=== PATIENT | male | born 1955 | race Caucasian/White ===

== ENCOUNTER 2023-03-20 21:43 | Outpatient (CLI) | payer MEDICARE | END 2023-03-20 21:44 | disposition critical access hospital (66) | LOC: EMS 21:43 | DX: R55 Syncope and collapse (principal); F10.90 Alcohol use, unspecified, uncomplicated | CPT/HCPCS: A0425; A0429 ==

== ENCOUNTER 2023-03-20 22:08 | Emergency (ER) | payer MEDICARE ==
[2023-03-20] MEDS ORDERED: SODIUM CHLORIDE 0.9% 1,000 ML IV STA ×2 (22:40→23:35)
[2023-03-20 22:45] LABS: BASOPHILS # (AUTO) 0.1 10^3/uL (0.0-0.1); BASOPHILS % (AUTO) 0.7 %; EOSINOPHILS # (AUTO) 0.2 10^3/uL (0.0-0.7); HCT - HEMATOCRIT 39.7 % (42.0-52.0); HGB - HEMOGLOBIN 12.9 g/dL (14.0-18.0); LYMPHOCYTES # (AUTO) 2.1 10^3/uL (1.5-3.5); LYMPHOCYTES % (AUTO) 25.8 %; MEAN CORPUSCULAR HEMOGLOBIN 31.2 pg (27.0-31.0); MEAN CORPUSCULAR HGB CONC 32.5 g/dL (32.0-36.0); MEAN CORPUSCULAR VOLUME 95.9 fL (80.0-94.0); MEAN PLATELET VOLUME 9.1 fL (7.4-11.4); MONOCYTES # (AUTO) 0.7 10^3/uL (0.0-1.0); MONOCYTES % (AUTO) 9.2 %; NEUTROPHILS % (AUTO) 62.1 %; PLT - PLATELET COUNT 205 10^3/uL (130-450); RED BLOOD COUNT 4.14 10^6/uL (4.70-6.10); RED CELL DISTRIBUTION WIDTH 13.5 % (12.0-15.0); WHITE BLOOD COUNT 8.1 x10^3/uL (4.8-10.8)
--- NOTE | 2023-03-20 22:56 | XRAY Report ---
PROCEDURE: Chest 1 View X-Ray INDICATIONS: syncope TECHNIQUE: One view of the chest was acquired. COMPARISON: None. FINDINGS: Surgical changes and devices: None. Lungs and pleura: No pleural effusions or pneumothorax. Lungs are clear. Mediastinum: Mediastinal contours appear normal. Heart size is borderline. Bones and chest wall: No suspicious bony lesions. Overlying soft tissues appear unremarkable. Old healed right-sided rib fractures are noted. IMPRESSION: Borderline cardiomegaly. No acute cardiopulmonary abnormality is seen. Reviewed by: Tae Pinto MD on 03/20/2023 10:55 PM [facility] Approved by: Tae Pinto MD on 03/20/2023 10:55 PM [facility] Station ID: [id number]
[2023-03-20 23:02] LABS: ALBUMIN/GLOBULIN RATIO 2.1 (1.0-2.2); BILIRUBIN,TOTAL 0.3 mg/dL (0.2-1.0); CALCIUM 8.7 mg/dL (8.5-10.3); CREATININE 1.3 mg/dL (0.6-1.3); POTASSIUM 3.6 mmol/L (3.5-4.5); TOTAL PROTEIN 5.9 g/dL (6.4-8.9)
[2023-03-20 23:04] LABS: TROPONIN I HIGH SENSITIVITY 3.8 ng/L (2.3-19.7)
--- NOTE | 2023-03-21 00:11 | ED Physician Documentation ---
PD HPI SYNCOPE - Stated complaint Stated Complaint: SYNCOPE - Chief complaint Chief Complaint: Neuro - History obtained from History obtained from: Patient, Family (Step son) - History of Present Illness Witnessed: Witnessed - Additional information Additional information: Patient is a 67-year-old male with a history of a prior stroke presenting for evaluation of a syncopal episode this evening. Patient had been in a tavern throughout the day drinking. He reports drinking approximately 8 beers and 2 shots of [place]. This evening he had dinner and it was sitting down in a chair. Per the stepson pt went to get up and then stated he needed to sit back down and then had a 1-2 minute syncopal episode. There was no head injury or fall. No witnessed seizure activity. Patient denies headache, chest pain, shortness of air or abdominal symptoms. Hesitated this has happened in the past when he has had alcohol throughout the day. Does not take a blood thinner. Review of Systems Constitutional: denies: Fever Cardiac: denies: Chest pain / pressure Respiratory: denies: Dyspnea GI: denies: Abdominal Pain, Vomiting Neurologic: reports: Syncope. denies: Head injury PD PAST MEDICAL HISTORY - Past Medical History Cardiovascular: High cholesterol Psych: Anxiety - Past Surgical History Past Surgical History: No - Present Medications Home Medications: Ambulatory Orders Medication Instructions Recorded Confirmed Aspirin [Aspirin EC] 325 mg PO DAILY 03/20/23 03/20/23 Atorvastatin Calcium 40 mg PO DAILY 03/20/23 03/20/23 Fluoxetine HCl [Prozac] 40 mg PO DAILY 03/20/23 03/20/23 Levothyroxine [Synthroid] 100 mcg PO QDAC 03/20/23 03/20/23 - Allergies Allergies/Adverse Reactions: Allergies Allergy/AdvReac Type Severity Reaction Status Date / Time No Known Drug Allergies Allergy Verified 03/20/23 22:24 - Social History Does the pt smoke?: No Smoking Status: Never smoker Does the pt drink ETOH?: Yes ETOH Use: Beer Substance Use and Type: Marijuana PD ED PE NORMAL - General General: Alert and oriented X 3, No acute distress, Well developed/nourished - HEENT HEENT: Atraumatic, PERRL, EOMI, Moist mucous membranes, Pharynx benign - Neck Neck: Supple, no meningeal sign - Cardiac Cardiac: RRR, Strong equal pulses - Respiratory Respiratory: No respiratory distress, Clear bilaterally - Abdomen Abdomen: Soft, Non tender, Non distended - Derm Derm: Warm and dry - Extremities Extremities: No deformity - Neuro Neuro: Alert and oriented X 3, commanding officer motorized squad 2-12 intact, No motor deficit, No sensory deficit, Normal speech Eye Opening: Spontaneous Motor: Obeys Commands Results - Vitals Vitals: Vital Signs - 24 hr 03/20/23 03/20/23 03/20/23 22:10 23:00 23:03 Temperature 36.5 C Heart Rate 70 68 Heart Rate [ Sitting] Heart Rate [ Standing] Heart Rate [ Supine] Respiratory 16 18 Rate Blood Pressure 121/63 89/69 L 117/64 Blood Pressure [Sitting] Blood Pressure [Standing] Blood Pressure [Supine] O2 Saturation 98 98 03/20/23 03/20/23 03/20/23 23:30 23:31 23:33 Temperature Heart Rate 69 74 Heart Rate [ 80 Sitting] Heart Rate [ 84 Standing] Heart Rate [ 74 Supine] Respiratory 12 18 Rate Blood Pressure 131/70 H 125/64 Blood Pressure 112/63 [Sitting] Blood Pressure 94/62 [Standing] Blood Pressure 125/64 [Supine] O2 Saturation 99 98 03/21/23 03/21/23 03/21/23 00:00 00:30 00:59 Temperature Heart Rate 71 73 79 Heart Rate [ Sitting] Heart Rate [ Standing] Heart Rate [ Supine] Respiratory 15 18 21 Rate Blood Pressure 144/80 H 166/86 H 155/83 H Blood Pressure [Sitting] Blood Pressure [Standing] Blood Pressure [Supine] O2 Saturation 99 99 97 Oxygen O2 Source Room air - EKG (time done) 2212 EKG releavant findings:: EKG personally interpreted by author of this note. Relevant findings are: Rate 69, normal sinus rhythm, no STEMI, QTc 454 - Labs Labs: Laboratory Tests 03/20/23 03/20/23 22:15 22:15 WBC 8.1 RBC 4.14 L Hgb 12.9 L Hct 39.7 L MCV 95.9 H MCH 31.2 H MCHC 32.5 RDW 13.5 Plt Count 205 MPV 9.1 Neut # (Auto) 5.0 Lymph # (Auto) 2.1 [place] # (Auto) 0.7 Eos # (Auto) 0.2 Baso # (Auto) 0.1 Absolute Nucleated RBC 0.00 Nucleated RBC % 0.0 Sodium 137 Potassium 3.6 Chloride 103 Carbon Dioxide 25 Anion Gap 9.0 BUN 27 H Creatinine 1.3 Estimated GFR (MDRD) 55 L Glucose 113 H Calcium 8.7 Total Bilirubin 0.3 AST 15 ALT 14 Alkaline Phosphatase 54 Troponin I High Sens 3.8 Total Protein 5.9 L Albumin 4.0 Globulin 1.9 L Albumin/Globulin Ratio 2.1 Lipase 41 Ethyl Alcohol 91.0 PD Medical Decision Making - ED course Complexity details: reviewed results, re-evaluated patient, d/w patient ED course: Patient is a 67-year-old male presenting for evaluation of a syncopal episode. No head injury. Normal neuro exam with No abnormal findings to suggest a stroke. EKG is nonischemic and with no arrhythmia. Sounds like patient went to try and stand up and then felt too weak and sat back down before he had his episode. This is also in the setting of heavy alcohol use today which patient states he does approximately 2 to 3 days a week. CBC, chemistries, troponin, EtOH level were obtained and reviewed. No significant findings. Chest x-ray which I reviewed is negative for consolidation or effusion. Orthostatics were obtained and patient does appear to have some orthostatic hypotension with drop in blood pressure on standing. He did receive 2 L of IV fluids and reports feeling much better. He is ambulatory without any symptoms. Patient counseled on need for continued hydration as well as to limit his alcohol use and to take caution when changing positions. Patient also advised on need for follow-up with primary care provider as well as concerning symptoms to return for. Departure - Departure Disposition: 01 Home, Self Care Clinical Impression: Syncope, Orthostatic dizziness Condition: Stable Instructions: ED Syncope Vasovagal Comments: You were evaluated after a fainting spell. Your labs are reassuring but it did seem that your blood pressure became low when you stood up. We have given you IV fluids and this has helped. Please continue to stay hydrated. Please limit your alcohol intake. I would also recommend follow-up with your primary care provider. Return to the emergency department with any worsening symptoms. Forms: PCP List Discharge Date/Time: 03/21/23 01:10
[2023-03-21 01:05] VITALS: BP 155/83; O2SAT 97
== END 2023-03-21 01:10 | disposition home or self-care (01) ==
LOC: EDBD → EDSEX → ED 22:08
DX: R55 Syncope and collapse (principal); R42 Dizziness and giddiness
CPT/HCPCS: 36415; 71045; 80053; 83690; 84484; 85025; 93005; 96360; 96361; 99283; 99284; G0480; 80320

== ENCOUNTER 2023-07-28 19:38 | Outpatient (CLI) | payer MEDICARE | END 2023-07-28 23:59 | disposition critical access hospital (66) | LOC: EMS 19:38 | DX: R41.82 Altered mental status, unspecified (principal); R11.10 Vomiting, unspecified; R06.89 Other abnormalities of breathing; R53.1 Weakness; R29.810 Facial weakness; I10 Essential (primary) hypertension | CPT/HCPCS: A0425; A0429 ==

== ENCOUNTER 2023-07-28 19:55 | Observation (INO) | payer MEDICARE ==
--- NOTE | 2023-07-28 20:00 | ED Physician Documentation ---
PD HPI FOCAL NEURO - Stated complaint Stated Complaint: CODE STROKE - History obtained from History obtained from: Patient, EMS - Additional information Additional information: 67-year-old gentleman with history of prior stroke with right-sided deficits was in his usual state of health and slumped over the kitchen table at 7:30 PM with vomiting and left-sided deficits. Prehospital blood sugar was 99. He is brought in as a code stroke. Paramedics tell me that his exam has improved since they initially evaluated him. Patient denies headache. No more nausea. PD PAST MEDICAL HISTORY - Past Medical History Cardiovascular: High cholesterol Psych: Anxiety - Past Surgical History Past Surgical History: No - Present Medications Home Medications: Ambulatory Orders Medication Instructions Recorded Confirmed Aspirin [Aspirin EC] 325 mg PO DAILY 03/20/23 07/28/23 Atorvastatin Calcium 40 mg PO DAILY 03/20/23 07/28/23 Fluoxetine HCl [Prozac] 40 mg PO DAILY 03/20/23 07/28/23 Levothyroxine [Synthroid] 100 mcg PO QDAC 03/20/23 07/28/23 - Allergies Allergies/Adverse Reactions: Allergies Allergy/AdvReac Type Severity Reaction Status Date / Time No Known Drug Allergies Allergy Verified 07/28/23 19:58 - Social History Does the pt smoke?: No Smoking Status: Never smoker Does the pt drink ETOH?: Yes PD ED PE NORMAL - Vitals Vital signs reviewed: Yes - General General: Well developed/nourished, Other (Appears ill) - HEENT HEENT: PERRL - Cardiac Cardiac: RRR, No murmur - Respiratory Respiratory: No respiratory distress, Clear bilaterally - Abdomen Abdomen: Non tender - Neuro Eye Opening: Spontaneous Motor: Obeys Commands NIHSS - Time Time: 19:58 - Level of Consciousness Level of consciousness: (1) Not alert, but arousable by minor stimulation to obey, or answer LOC Questions: (0) Answers both Q's correct LOC Commands: (0) Performs both correctly - Gaze Best Gaze: (1) Partial gaze palsy - Visual Visual: (0) No loss - Facial Palsy Facial Palsy: (2) Partial paralysis (left) - Motor Arms (both separate) Motor Arm (right): (0) No drift Motor Arm (left): (1) Drift - Motor Legs (both separate) Motor Leg (right): (0) No drift Motor Leg (left): (0) No drift - Limb Ataxia Limb Ataxia: (0) Absent - Sensory Sensory: (0) Normal - Best Language Best Language: (2) Severe aphasia - Dysarthria Dysarthria: (2) Severe dysarthria - Extinction and Inattention (formally neg Extinction and inattention: (0) No abnormality - Total Score/Results Total Score/Result: 9 Results - Vitals Vitals: Vital Signs - 24 hr 07/28/23 07/28/23 07/28/23 19:50 20:00 20:30 Temperature 37.1 C Heart Rate 99 96 95 Respiratory 24 19 19 Rate Blood Pressure 163/99 H 157/84 H 142/82 H O2 Saturation 96 97 98 Oxygen O2 Source Room air - EKG (time done) 2037 EKG releavant findings:: EKG personally interpreted by author of this note. Relevant findings are: Rate: Rate (enter#) (92) Rhythm: NSR, LAE Marshall: LAD Intervals: Normal GA QRS: Normal Ischemia: Normal ST segments - Labs Labs: Laboratory Tests 07/28/23 07/28/23 07/28/23 20:05 20:05 20:05 WBC 7.3 RBC 4.40 L Hgb 13.8 L Hct 41.1 L MCV 93.4 MCH 31.4 H MCHC 33.6 RDW 13.2 Plt Count 183 MPV 8.7 Neut # (Auto) 4.7 Lymph # (Auto) 1.7 [place] # (Auto) 0.7 Eos # (Auto) 0.2 Baso # (Auto) 0.1 Absolute Nucleated RBC 0.00 Nucleated RBC % 0.0 PT 11.2 INR 1.0 Sodium 134 L Potassium 4.3 Chloride 102 Carbon Dioxide 25 Anion Gap 7.0 BUN 22 H Creatinine 1.2 Estimated GFR (MDRD) 61 L Glucose 109 H Calcium 9.0 Total Bilirubin 0.5 AST 16 ALT 15 Alkaline Phosphatase 61 Total Protein 6.4 Albumin 4.2 Globulin 2.2 Albumin/Globulin Ratio 1.9 Lipase 47 PD Medical Decision Making - ED course ED course: 67-year-old gentleman brought in as a code stroke. He went expeditiously over to CT. On my "wet read" of the study, I see a fairly normal-looking brain without bleed. I spoke with the telestroke neurologist who will see the patient, he did have significant improvement in his left arm strength but still seeming like he may be a tPA candidate. On return from CT I went into the room and the telestroke physician was evaluati ng him. The patient had made a very miraculous recovery with only now very mild facial droop and very mild dysarthria. Because of that the stroke neurologist did not recommend thrombolytics but does recommend loading him with Plavix. Patient already takes aspirin. Recommends admission to the hospital for observation and medical optimization. Spoke with Dr. Gomez, telehealth hospitalist for admit at approximately 9:05 PM. Departure - Departure Disposition: ED Place in Observation Clinical Impression: TIA (transient ischemic attack) Condition: Stable
[2023-07-28 20:16] LABS: BASOPHILS # (AUTO) 0.1 10^3/uL (0.0-0.1); BASOPHILS % (AUTO) 0.7 %; EOSINOPHILS # (AUTO) 0.2 10^3/uL (0.0-0.7); HCT - HEMATOCRIT 41.1 % (42.0-52.0); HGB - HEMOGLOBIN 13.8 g/dL (14.0-18.0); LYMPHOCYTES # (AUTO) 1.7 10^3/uL (1.5-3.5); LYMPHOCYTES % (AUTO) 23.2 %; MEAN CORPUSCULAR HEMOGLOBIN 31.4 pg (27.0-31.0); MEAN CORPUSCULAR HGB CONC 33.6 g/dL (32.0-36.0); MEAN CORPUSCULAR VOLUME 93.4 fL (80.0-94.0); MEAN PLATELET VOLUME 8.7 fL (7.4-11.4); MONOCYTES # (AUTO) 0.7 10^3/uL (0.0-1.0); MONOCYTES % (AUTO) 9.7 %; NEUTROPHILS # (AUTO) 4.7 10^3/uL (1.5-6.6); NEUTROPHILS % (AUTO) 64.1 %; PLT - PLATELET COUNT 183 10^3/uL (130-450); RED CELL DISTRIBUTION WIDTH 13.2 % (12.0-15.0); WHITE BLOOD COUNT 7.3 x10^3/uL (4.8-10.8)
[2023-07-28 20:24] LABS: PT - PROTHROMBIN TIME 11.2 secs (9.9-12.6)
[2023-07-28] MEDS ORDERED: iohexoL-300 100 ML VIAL ONE (20:28)
--- NOTE | 2023-07-28 20:29 | CT Report ---
PROCEDURE: Head W/O Stroke Protocol INDICATIONS: Neuro deficit, acute, stroke suspected TECHNIQUE: Noncontrast 4.5 mm thick angled axial sections acquired from the foramen magnum to the vertex, with c oronal reformats. For radiation dose reduction, the following was used: automated exposure control, adjustment of mA and/or kV according to patient size. COMPARISON: None. FINDINGS: Image quality: Excellent. CSF spaces: Basal cisterns are patent. No extra-axial fluid collections. Ventricles are normal in size and shape. Brain: No midline shift. No intracranial masses or hemorrhage. Yuen-white matter interface is norm al. Skull and face: Calvarium and visualized facial bones are intact, without suspicious lesions. Sinuses: Visualized sinuses and mastoids are clear. IMPRESSION: No acute intracranial abnormality. This study fulfills neurological imaging criteria for inclusion or exclusion of acute stroke therapie s based on available published neurological imaging guidelines. Reviewed by: Paxton Olsen MD on 07/28/2023 8:28 PM PDT Approved by: Paxton Olsen MD on 07/28/2023 8:28 PM PDT Station ID: [id number]
[2023-07-28] MEDS: iohexoL-300 100 ML VIAL IVP ONE (20:34)
[2023-07-28 20:43] LABS: ALBUMIN 4.2 g/dL (3.2-5.5); ALBUMIN/GLOBULIN RATIO 1.9 (1.0-2.2); BILIRUBIN,TOTAL 0.5 mg/dL (0.2-1.0); CREATININE 1.2 mg/dL (0.6-1.3); POTASSIUM 4.3 mmol/L (3.5-4.5); TOTAL PROTEIN 6.4 g/dL (6.4-8.9)
--- NOTE | 2023-07-28 20:43 | CT Report ---
PROCEDURE: Angio Head/Neck INDICATIONS: cva sx TECHNIQUE: After the administration of intravenous contrast, 1 mm thick sections acquired from the aortic arch t hrough the [place] of [place]. 3-dimensional jlnkvnz-qodlxcgyz-nnokjwcygw (MIP) and/or volume renderin g reformats were acquired of the central intracranial vasculature and neck separately. For radiation dose reduction, the following was used: automated exposure control, adjustment of mA and/or kV acco rding to patient size. CONTRAST: Omni 300 80 ml COMPARISON: None. FINDINGS: Image quality: Suboptimal examination due to motion artifacts and suboptimal opacification of cerebra l arteries. HEAD CT: CSF Spaces: Basal cisterns are patent. No extra-axial fluid collections. Ventricles are normal in size and shape. Brain: No significant abnormality is seen for scanning technique. Skull and face: Calvarium and visualized facial bones appear intact, without suspicious lesions. Sinuses: Visualized sinuses and mastoids are clear. HEAD CT ANGIOGRAPHY: Anterior circulation: Intracranial internal carotid arteries are normal in size and flow. The flow within the paired anterior cerebral arteries is normal and symmetric. The flow within the middle cer ebral arteries is normal and symmetric. The anterior communicating artery is seen. No aneurysms are seen. Posterior circulation: Visualized portions of the vertebral arteries demonstrate normal caliber, and join to form a normal appearing basilar artery. Flow within the posterior cerebral arteries is norm al and symmetric. No aneurysms are seen. NECK CT ANGIOGRAPHY: Carotid system: There is a common trunk for the left common carotid artery and the left subclavian ar chayo. The origins of the common carotid arteries appear patent. The common carotid arteries demonst rate normal caliber and courses. The bifurcation regions are both widely patent. The internal carot id arteries demonstrate normal calibers and courses. Posterior circulation: Dominant left vertebral artery. The origins of the vertebral arteries both ap pear widely patent. The more superior extracranial portions of both vertebral arteries also demonstr ate normal courses and calibers. They join to form a normal appearing basilar artery. Soft tissues: Visualized neck soft tissues demonstrate no suspicious abnormalities. Bones: No suspicious bony lesions. Visualized cervical spine appears normally aligned. IMPRESSION: 1. Suboptimal examination No significant intracranial arterial abnormality is seen. 2. No significant abnormality is seen within the arteries of the neck. The estimate of stenosis included in the report of the imaging study was calculated using the NASCET method Reviewed by: Paxton Olsen MD on 07/28/2023 8:41 PM PDT Approved by: Paxton Olsen MD on 07/28/2023 8:41 PM PDT Station ID: [id number]
[2023-07-28] MEDS: CLOPIDOGREL 300 MG TABLET PO STA (20:51)
[2023-07-28] MEDS: SODIUM CHLORIDE 0.9% 1,000 ML IV STA (21:23)
[2023-07-28] MEDS ORDERED: ACETAMINOPHEN 325 MG TABLET PO PRN (21:32)
[2023-07-28] MEDS ORDERED: SODIUM CHLORIDE FLUSH 0.9% 10 ML SYRINGE IVP PRN (21:32)
[2023-07-28] MEDS ORDERED: ONDANSETRON 4 MG/2 ML VIAL IVP PRN (21:32)
--- NOTE | 2023-07-28 21:46 | HISTORY & PHYSICAL EXAMINATION ---
Chief Complaint - Chief Complaint Chief Complaint: Code stroke History of Present Illness - Admitted From Admitted From:: Home - History Obtained From Records Reviewed: Yes History obtained from: EM team, patient and his Exam Limitations: None - History of Present Illness HPI Comment/Other: "67-year-old gentleman brought in as a code stroke. He went expeditiously over to CT. On my "wet read" of the study, I see a fairly normal-looking brain without bleed. I spoke with the telestroke neurologist who will see the patient, he did have significant improvement in his left arm strength but still seeming like he may be a tPA candidate. On return from CT I went into the room and the telestroke physician was evaluating him. The patient had made a very miraculous recovery with only now very mild facial droop and very mild dysarthria. Because of that the stroke neurologist did not recommend thrombolytics but does recommend loading him with Plavix. Patient already takes aspirin. 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 Patient is full code, patient is feeling better, no cp, no sob, no palpitations, is in SR. no active complaints, History - Past Medical History Cardiovascular: reports: High cholesterol Psych: reports: Anxiety Meds/Allgy - Home Medications Home Medications: Ambulatory Orders Medication Instructions Recorded Confirmed Aspirin [Aspirin EC] 325 mg PO DAILY 03/20/23 07/28/23 Atorvastatin Calcium 40 mg PO DAILY 03/20/23 07/28/23 Fluoxetine HCl [Prozac] 40 mg PO DAILY 03/20/23 07/28/23 Levothyroxine [Synthroid] 100 mcg PO QDAC 03/20/23 07/28/23 - Allergies Allergies/Adverse Reactions: Allergies Allergy/AdvReac Type Severity Reaction Status Date / Time No Known Drug Allergies Allergy Verified 07/28/23 19:58 Review of Systems - Other Findings Other Findings: 14 system review done and negative at this time Prior Level of Functionality: Independent with ADL Exam - Vital Signs Vital Signs: Vital Signs x48h Temp Pulse Resp BP Pulse Ox 07/28/23 21:00 89 22 148/82 H 97 07/28/23 20:30 95 19 142/82 H 98 07/28/23 20:00 96 19 157/84 H 97 07/28/23 19:50 37.1 C 99 24 163/99 H 96 - Physical Exam General Appearance: positive: No acute distress, Alert Eyes Bilateral: positive: Normal inspection, PERRL ENT: positive: Pharynx nml, No signs of dehydration Neck: positive: Nml inspection, Thyroid nml Respiratory: positive: No respiratory distress, Breath sounds nml Cardiovascular: positive: Regular rate & rhythm Abdomen: positive: Non-tender, Nml bowel sounds Back: positive: Nml inspection Neurologic/Psychiatric: positive: Oriented x3, Motor nml Sepsis Event Note (H) - Evaluation Current Stage of Sepsis: Ruled out Conclusion/Plan - Problem List (1) Hyperlipidemia Conclusion/Plan: Continue Lipitor Check Lipids LDL goal < 55 (2) TIA (transient ischemic attack) Conclusion/Plan: ASA Plavix Statinn ASA and Plavix x 21 days high dose statin MRI in am neuro telemetry consulted will follow recs (3) Hypothyroidism Conclusion/Plan: Continue synthorid check tsh - Lab Results Fish Bones: 07/28/23 20:05 07/28/23 20:05 - Diagnostic Imaging Results Diagnostic Imaging Results: positive: Final report reviewed - EKG Results EKG Interpreted Independently: No
[2023-07-28] MEDS: ATORVASTATIN 40 MG TABLET PO SCH (23:04)
[2023-07-28] MEDS: CLOPIDOGREL 75 MG TABLET PO STA (23:20)
[2023-07-28] MEDS: ATORVASTATIN 40 MG TABLET PO ONE (23:42)
[2023-07-28] MEDS: SODIUM CHLORIDE FLUSH 0.9% 10 ML SYRINGE IVP SCH (23:45)
[2023-07-29] MEDS: LEVOTHYROXINE 100 MCG TABLET PO SCH (06:17)
[2023-07-29] MEDS ORDERED: ATORVASTATIN 40 MG TABLET PO SCH (09:00)
[2023-07-29] MEDS: ASPIRIN EC 325 MG TABLET PO SCH (09:05)
[2023-07-29] MEDS: FLUoxetine 10 MG CAPSULE PO SCH (09:06)
--- NOTE | 2023-07-29 11:55 | PHARMACY PROGRESS NOTE ---
- Best Possible Medication History Admit Date and Time: 07/28/232132 Processed by: Pharmacy Medications reviewed in ED?: Yes Medication History completed: Yes Patient Interview: Completed Secondary Source(s): Insurance records As the person ultimately responsible for medication therapy, providers are able to order a medication from an existing home medication list in [facility] via the "Reconcile Routine" prior to Confirmation of that medication by technology support analyst. Such practice is discouraged except when the physician, in their clinical judgment, deems that a medical need exists for a medication without regard to previous use.
[2023-07-29 14:11] VITALS: O2SAT 96
[2023-07-29 15:54] VITALS: BP 142/88
[2023-07-29] MEDS: CLOPIDOGREL 75 MG TABLET PO SCH (15:59)
--- NOTE | 2023-07-29 16:15 | MRI Report ---
PROCEDURE: Brain WO INDICATIONS: tia TECHNIQUE: Noncontrast axial T1 spin echo, axial T2 fast spin echo, sagittal and axial FLAIR, coronal T2 fast sp in echo, axial gradient echo, axial diffusion and ADC through the brain. COMPARISON: None. FINDINGS: Image quality: Excellent. CSF Spaces: Basal cisterns are patent. No extra-axial fluid collections. Ventricles are normal in size and shape. Brain: No intracranial masses or hemorrhage. Yuen/white matter interface is normal. Brainstem appe ars normal. Diffusion-weighted images demonstrate no acute ischemic insult. No chronic ischemic ins ults. Normal intravascular flow voids are present. Skull and face: Calvarium has normal marrow signal. Orbits appear normal. Sinuses: Sinuses and mastoids are clear except for small mucous retention cysts within the maxillary sinuses bilaterally as an incidental finding. IMPRESSION: Normal for age. No sign of recent or chronic stroke. Reviewed by: Madhav Mann MD on 07/29/2023 4:14 PM PDT Approved by: Madhav Mann MD on 07/29/2023 4:14 PM PDT Station ID: [id number]
--- NOTE | 2023-07-29 16:43 | DISCHARGE SUMMARY ---
Discharge Summary Admit Date: 07/28/23 Discharge Date: 07/29/23 Discharging Provider: Mariza Haskins MD Primary Care Provider: DO Og Chester Primary Care Code Status: Attempt Resuscitation Condition at Discharge: Fair Discharge Disposition: 01 Home, Self Care - DIAGNOSES Discharge Diagnoses with Status of Each Condition: 1. TIA 2. History of stroke 3. Hyperlipidemia 4 hypothyroidism 5. GERD - HPI History of Present Illness: "67-year-old gentleman brought in as a code stroke. He went expeditiously over to CT. On my "wet read" of the study, I see a fairly normal-looking brain without bleed. I spoke with the telestroke neurologist who will see the patient, he did have significant improvement in his left arm strength but still seeming like he may be a tPA candidate. On return from CT I went into the room and the telestroke physician was evaluating him. The patient had made a very miraculous recovery with only now very mild facial droop and very mild dysarthria. Because of that the stroke neurologist did not recommend thrombolytics but does recommend loading him with Plavix. Patient already takes aspirin. Recommends admission to the hospital for observation and medical optimization." Patient seen and examined via telemedicine, aoa x 3, used to play baseball in hsi younger days and then worked for over 23 years in [employer], he admits to having ETOH and has hx of CVA last year, all work in ER has been unremarkabkle, was loaded with Plavix in Er, already got ASA and Statin, russell AIKEN consulted by ER and is involved in care. Patient is full code, patient is feeling better, no cp, no sob, no palpitations, is in SR. no active complaints, - Past Medical History Cardiovascular: reports: High cholesterol Psych: reports: Anxiety - CONSULTS | PROCEDURES Procedures: Head CT without acute intracranial abnormality Angiogram of head and neck is a suboptimal exam because of movement. But no significant abnormality seen within the arteries of the neck or the head. Brain MRI for age, no sign of recent or chronic stroke Echocardiogram not able to be done since electronic systems technician not available and it would be recommended that he get a follow-up echo in the outpatient setting looking for dilated left atrium or patent PFO - HOSPITAL COURSE Hospital Course: Although the patient's presentation was quite traumatic with left-sided facial droop and drooling and affecting speech, all of this resolved. As such she has had a TIA. Was started on Plavix. He should see his primary care provider in follow-up. To stay on aspirin and Plavix for 21 days and then choose which of the antiplatelet drugs he will be on. We also recommended that he take a cholesterol pill a day. He is discharged in stable condition with a temperature 36.5, heart rate 81, blood pressure 142/88, respirations 18. 96% on room air. A pleasant alert oriented middle-aged white male who looks his stated age. Able to go from supine, to sitting, to standing without ataxia or help. No carotid bruits. Clear lungs. Regular rate and rhythm This document was made in part using voice recognition software. While efforts are made to proofread this document, sound alike and grammatical errors may occur. - ALLERGIES Allergies/Adverse Reactions: Allergies Allergy/AdvReac Type Severity Reaction Status Date / Time No Known Drug Allergies Allergy Verified 07/28/23 19:58 - MEDICATIONS Home Medications: Ambulatory Orders Medication Instructions Recorded Confirmed Aspirin [Aspirin EC] 325 mg PO DAILY 03/20/23 07/29/23 Atorvastatin Calcium 40 mg PO DAILY 03/20/23 07/29/23 Fluoxetine HCl [Prozac] 60 mg PO DAILY 03/20/23 07/29/23 Levothyroxine [Synthroid] 100 mcg PO QDAC 03/20/23 07/29/23 Clopidogrel [Plavix] 75 mg PO DAILY #30 tab 07/29/23 - LABS Result Diagrams: 07/28/23 20:05 07/28/23 20:05 - SEPSIS Current Stage of Sepsis: Ruled out
--- NOTE | 2023-07-29 16:47 | Discharge Plan ---
Discharge Plan Problem Reviewed?: Yes Disposition: Home, Self Care Condition: Fair Prescriptions: Clopidogrel [Plavix] 75 mg PO DAILY #30 tab Diet: Cardiac Activity Restrictions: Activity as Tolerated Shower Restrictions: No Driving Restrictions: No Weight Bearing: Full Weight Health Concerns: You had to come to the emergency room and were brought in by ambulance because of a sudden change in your status. Your gentleman who has a previous stroke and it affected the right side of your body. But you are stable from that. You are eating dinner and you suddenly slumped over and you began vomiting. Ambulance was called and EMS reported that you had left sided body facial droop and weakness. They made sure your glucose was okay to 100. 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 But you still had a left-sided facial droop with some drooling. And your speech was slurred. A CAT scan of your head was done and it did not show a new stroke. Then they did a dye study to look at all the arteries of your brain and we divide the brain arteries into front circulation, back circulation and bottom circulation. We also look at the circulation of your neck. No arteries were blocked and did not need surgical intervention. Sometimes the CAT scan can miss a stroke so then you followed up with an MRI of the brain which is a very, very specific study for the brain. The MRI was done and there is no sign of a recent stroke. You are now back to baseline. I, the doctor, try to see you several times today but each time you are having to pee and not have to come back in. I was finally able to sit down with you this afternoon and go over the studies. You are speaking normally. Are alert and oriented. And I feel you are safe to return to home. Plan of Treatment: Please see your primary care provider in follow-up. You see Dr. Jelly Lee. See him in the next 2 to 3 weeks. We think that you have had a transient ischemic attack. Not a true stroke. Treatment for that is to make sure your blood pressure stays stable, that you are on an aspirin a day, and that you take a cholesterol pill a day. For the next 3 weeks we are recommending that you take an extra blood thinner called Plavix. You would only do that for 3 weeks. Then you and Dr. Lee can decide if you want to be on Plavix for a blood thinner or aspirin. Assessment: Patient is alert, oriented to person, place, time and situation No Smoking: If you smoke, Please STOP! Call for help.
[2023-07-30] MEDS ORDERED: FLUoxetine 10 MG CAPSULE PO SCH (09:00)
== END 2023-07-29 18:40 | disposition home or self-care (01) ==
LOC: EDUNIT# → ED 19:55 → INTOOBSV 21:33 → MS2 21:33 → UNDOADMOB 21:33 → MS2 07-29 09:29
PROVIDERS: ADMIT Internal Medicine; ATTEND Specialist
DX: G45.9 Transient cerebral ischemic attack, unspecified (principal); R29.810 Facial weakness; R47.1 Dysarthria and anarthria; E03.9 Hypothyroidism, unspecified; K21.9 Gastro-esophageal reflux disease without esophagitis; E78.00 Pure hypercholesterolemia, unspecified; F41.9 Anxiety disorder, unspecified; I69.351 Hemiplegia and hemiparesis following cerebral infarction affecting right dominant side; Z79.82 Long term (current) use of aspirin; Z79.890 Hormone replacement therapy; Z79.899 Other long term (current) drug therapy
CPT/HCPCS: 36415; 70450; 70496; 70498; 70551; 80053; 83690; 85025; 85610; 93005; 99285; A9270; G0378; Q9967

== ENCOUNTER 2023-07-29 19:36 | Outpatient (CLI) | payer MEDICARE | END 2023-07-29 23:59 | disposition short-term general hospital (02) | LOC: EMS 19:36 | DX: R29.810 Facial weakness (principal); R47.81 Slurred speech; I10 Essential (primary) hypertension | CPT/HCPCS: A0425; A0429 ==